=== PATIENT | male | born 1990 | race Caucasian/White ===

== ENCOUNTER 2016-12-07 16:53 | Emergency (ER) | payer OTHER ==
[2016-12-07 17:29] VITALS: BP 123/63
--- NOTE | 2016-12-07 18:56 | UC ---
Knee Pain HPI - HPI Summary HPI Summary: The patient comes in today for: 1. Right knee pain: Onset: 2 weeks. Palliative/provocative: Ibuprofen makes it better. Quality: Burning at times. Region: Above the right patella and the medical aspect of the right knee. Severity: 2/10 Time: Comes and goes. Associated symptoms: Event: He slipped on ice while jumping to get over the curb and he think that he struck the inside of the right knee. Previous problems with your knees: None. Previous treatment: ibuprofen--400 mg at most only once. * - History of Current Complaint Chief Complaint: UCLowerExtremity Stated Complaint: KNEE INJURY Time Seen by Provider: 12/07/16 18:50 Hx Obtained From: Patient - Allergies/Home Medications Allergies/Adverse Reactions: Allergies Allergy/AdvReac Type Severity Reaction Status Date / Time No Known Allergies Allergy Verified 12/07/16 17:30 PMH/Surg Hx/FS Hx/Imm Hx Previously Healthy: Yes Endocrine History Of: Denies: Diabetes, Thyroid Disease, Hyperthyroidism, Hypothyroidism, Dyslipidemia Cardiovascular History Of: Denies: Cardiac Disorders, Hypertension, Pacemaker/ICD, Myocardial Infarction , Congestive Heart Failure, Atrial Fibrillation, Deep Vein Thrombosis, Bleeding Disorders Respiratory History Of: Denies: COPD, Asthma, Bronchitis, Pneumonia, Pulmonary Embolism GI/ History Of: Reports: Ulcer - He does not take any medications for this. Dx'ed age 7 Denies: Gastroesophageal Reflux, Gastrointestinal Bleed, Gall Bladder Disease , Kidney Stones, Diverticulitis, Renal Disease, Urosepsis Neurological History Of: Denies: TIA, CVA, Dementia, Seizures, Migraine Psychological History Of: Denies: Anxiety, Depression, Bipolar Disorder, Schizophrenia, Post Traumatic Stress Disorder Cancer History Of: Denies: Lung Cancer, Colorectal Cancer, Breast Cancer, Prostate Cancer, Cervical Cancer Other History Of: Negative For: HIV, Hepatitis B, Hepatitis C, Anticoagulant Therapy - Surgical History Surgical History: Yes Surgery Procedure, Year, and Place: appendectomy - Family History Known Family History: Positive: Hypertension Negative: Cardiac Disease, Diabetes - Social History Occupation: Employed Full-time Alcohol Use: None Substance Use Type: None Smoking Status (MU): Never Smoked Tobacco - Immunization History Most Recent Influenza Vaccination: not this season Review of Systems Constitutional: Negative Skin: Negative Eyes: Negative ENT: Negative Respiratory: Negative Cardiovascular: Negative Gastrointestinal: Negative Genitourinary: Negative Musculoskeletal: Arthralgia All Other Systems Reviewed And Are Negative: Yes Physical Exam Triage Information Reviewed: Yes Appearance: Well-Appearing, No Pain Distress, Well-Nourished Vital Signs: Initial Vital Signs Temp 98.2 F 12/07/16 17:25 Pulse 63 12/07/16 17:25 Resp 20 12/07/16 17:25 BP 123/63 12/07/16 17:25 Pulse Ox 96 12/07/16 17:25 Vital Signs Reviewed: Yes Eyes: Positive: Conjunctiva Clear. Negative: Discharge ENT: Positive: Hearing grossly normal. Negative: Pharyngeal erythema, Nasal congestion, Nasal drainage, TM bulging, TM dull, TM red, Tonsillar swelling, Tonsillar exudate Dental: Negative: Gross Decay/Caries @, Dental Fracture @ Neck: Positive: Supple, Nontender, No Lymphadenopathy. Negative: Nuchal Rigidity Respiratory: Positive: Lungs clear, No respiratory distress, No accessory muscle use. Negative: Crackles, Wheezing Cardiovascular: Positive: RRR, No Murmur Abdomen Description: Positive: Nontender, No Organomegaly, Soft. Negative: Distended, Guarding Musculoskeletal: Positive: Strength Intact, ROM Intact, Other: - There is no ecchymosis or edema of the right knee. There is full range of motion without any crepitations. There is no effusion. There is no tenderness of the hamstring tendons and no tenderness to patellar compression. There is no anterior medical or lateral meniscii tenderness to palpation. There is tenderness to palpation of the medial collateral ligament. There is no laxity of the collateral ligaments or cruciate ligaments. Neurological: Positive: Alert, Muscle Tone Normal Psychological: Positive: Age Appropriate Behavior, Consolable Skin: Negative: rashes, breakdown Knee Pain Course/Dx - Course Course Of Treatment: Patient was told of his diagnostic and treatment options. At this time, he declines an x-ray but will take a prescription NSAIDS--he declines one while he is here. - Differential Dx/Diagnosis Provider Diagnoses: Right knee pain, strain of the medial collateral ligament. Discharge - Discharge Plan Condition: Stable Disposition: HOME Patient Education Materials: Knee Pain (ED) Forms: *Work Release Referrals: [facility]YSICIAN REFERRAL [Outside] No Primary Care Phys,NOPCP [Primary Care Provider] - 1 Week (Please see your primary care provider in about three days to see how well you are doing. If you don't have a primary care provider, please contact the physician referral service. If you can't get in timely, please you may come back to see us until you can. If you get worse, please be seen sooner by us or the ER.)
== END 2016-12-07 19:44 | disposition home or self-care (01) ==
LOC: UCEAST 16:53
DX: S83.411A Sprain of medial collateral ligament of right knee, initial encounter (principal); W00.0XXA Fall on same level due to ice and snow, initial encounter; Y93.39 Activity, other involving climbing, rappelling and jumping off; Y92.9 Unspecified place or not applicable
CPT/HCPCS: 99212; G0463

== ENCOUNTER 2017-04-16 20:51 | Emergency (ER) | payer OTHER ==
[2017-04-16] MEDS ORDERED: Ketorolac INJ* 60 MG/2 ML VIAL IM ONE (21:21)
[2017-04-16] MEDS ORDERED: Cyclobenzaprine TAB* 10 MG PO ONE (21:21)
--- NOTE | 2017-04-16 21:28 | ED ---
Back Pain - HPI Summary HPI Summary: 26M presents with back pain for years. He says today the pain got worst. He was going cardio abs yesterday. He denies any injury. He went to the chiropractor which made the pain worst. Pain is greatest on left side of back. He does not have a primary. He denies any fever, IV drug use, loss of bowel or bladder or saddle anaesthesia. He denies any numbness, tingling, weakness, or pain into legs. - History of Current Complaint Chief Complaint: EDBackInjuryPain Stated Complaint: LOWER BACK PAIN Time Seen by Provider: 04/16/17 21:06 Pain Intensity: 4 - Allergies/Home Medications Allergies/Adverse Reactions: Allergies Allergy/AdvReac Type Severity Reaction Status Date / Time No Known Allergies Allergy Verified 04/16/17 20:54 PMH/Surg Hx/FS Hx/Imm Hx Endocrine/Hematology History: Denies: Hx Anticoagulant Therapy, Hx Diabetes, Hx Thyroid Disease Cardiovascular History: Denies: Hx Congestive Heart Failure, Hx Deep Vein Thrombosis, Hx Hypertension , Hx Myocardial Infarction, Hx Pacemaker/ICD Respiratory History: Denies: Hx Asthma, Hx Chronic Obstructive Pulmonary Disease (COPD), Hx Lung Cancer, Hx Pneumonia, Hx Pulmonary Embolism GI History: Reports: Hx Ulcer - He does not take any medications for this. Dx' ed age 7 Denies: Hx Gall Bladder Disease, Hx Gastrointestinal Bleed, Hx Urosepsis History: Denies: Hx Kidney Stones, Hx Renal Disease Neurological History: Denies: Hx Dementia, Hx Migraine, Hx Seizures, Hx Transient Ischemic Attacks (TIA) Psychiatric History: Denies: Hx Anxiety, Hx Depression, Hx Schizophrenia, Hx Bipolar Disorder - Surgical History Surgery Procedure, Year, and Place: appendectomy - Immunization History Date of Tetanus Vaccine: unknown Infectious Disease History: No Infectious Disease History: Denies: Hx Clostridium Difficile, Hx Hepatitis, Hx Human Immunodeficiency Virus (HIV), Hx of Known/Suspected MRSA, Hx Shingles, Hx Tuberculosis, Hx Known/ Suspected VRE, Hx Known/Suspected VRSA, History Other Infectious Disease, Traveled Outside the [place] in Last 30 Days - Family History Known Family History: Positive: Hypertension Negative: Cardiac Disease, Diabetes - Social History Alcohol Use: None Substance Use Type: Reports: None Smoking Status (MU): Never Smoked Tobacco Review of Systems Negative: Fever Negative: Chest Pain Negative: Shortness Of Breath Positive: Myalgia - back pain All Other Systems Reviewed And Are Negative: Yes Physical Exam Triage Information Reviewed: Yes Vital Signs On Initial Exam: Initial Vitals Temp Pulse Resp BP Pulse Ox 97.5 F 73 18 122/73 98 04/16/17 20:54 04/16/17 20:54 04/16/17 20:54 04/16/17 20:54 04/16/17 20:54 Vital Signs Reviewed: Yes Appearance: Positive: Well-Appearing Skin: Positive: Warm, Dry Head/Face: Positive: Normal Head/Face Inspection Eyes: Positive: Normal, Conjunctiva Clear Respiratory/Lung Sounds: Positive: Clear to Auscultation, Breath Sounds Present Cardiovascular: Positive: Normal, RRR Musculoskeletal: Positive: Strength/ROM Intact - back, Other - neg SLR, no midline tenderness, tenderness to paraspinal muscle greatest on left side Diagnostics - Vital Signs Vital Signs Temp Pulse Resp BP Pulse Ox 04/16/17 20:54 97.5 F 73 18 122/73 98 - Laboratory Lab Statement: Any lab studies that have been ordered have been reviewed, and results considered in the medical decision making process. Back Pain Course/Dx - Course Course Of Treatment: 26M presents with back pain for years. He says today the pain got worst. He was going cardio abs yesterday. He denies any injury. He went to the chiropractor which made the pain worst. Pain is greatest on left side of back and has no midline tenderness. due to no injury will not image. neg SLR. will treat with flexeril and told to get primary. patient understands and agrees with plan - Diagnoses Differential Diagnosis/HQI/PQRI: Positive: Herniated Disc, Strain, Sprain Provider Diagnoses: Back pain Discharge - Discharge Plan Condition: Good Disposition: HOME Prescriptions: Cyclobenzaprine TAB* [Flexeril 10 MG TAB*] 10 mg PO TID PRN #9 tab PRN Reason: Pain Patient Education Materials: Back Pain (ED) Forms: *Work Release Referrals: [facility] [place] [facility]FERR[facility] [Outside] Additional Instructions: Take muscle relaxers three times a day for 3 days Use ibuprofen or Tylenol for pain every 6 hours ice/heat area, move as much as possible Establish care with primary care physician Return to ED if develop any new or worsening symptoms
[2017-04-16 21:54] VITALS: BP 140/66
== END 2017-04-16 21:53 | disposition home or self-care (01) ==
LOC: ED 20:51
DX: M54.5 Low back pain (principal)
CPT/HCPCS: 96372; 99282; A9270-GY; J1885

== ENCOUNTER 2017-05-10 11:44 | Emergency (ER) | payer SELFPAY ==
--- NOTE | 2017-05-10 11:47 | UC ---
Back Pain HPI - HPI Summary HPI Summary: 26 year old male presents with complains of back pain secondary to lifting heavy boxes at work. - History of Current Complaint Chief Complaint: UCBackPain Stated Complaint: LOWER BACK INJURY Time Seen by Provider: 05/10/17 11:47 - Allergies/Home Medications Allergies/Adverse Reactions: Allergies Allergy/AdvReac Type Severity Reaction Status Date / Time No Known Allergies Allergy Verified 04/16/17 20:54 Home Medications: Home Medications Meloxicam 7.5 mg PO 05/10/17 [History] PMH/Surg Hx/FS Hx/Imm Hx Previously Healthy: Yes Other History Of: Negative For: HIV, Hepatitis B, Hepatitis C, Anticoagulant Therapy - Surgical History Surgical History: Yes Surgery Procedure, Year, and Place: appendectomy - Family History Known Family History: Positive: Hypertension Negative: Cardiac Disease, Diabetes - Social History Alcohol Use: None Substance Use Type: None Smoking Status (MU): Never Smoked Tobacco - Immunization History Most Recent Influenza Vaccination: not this season Review of Systems Constitutional: Negative Skin: Negative Eyes: Negative ENT: Negative Respiratory: Negative Cardiovascular: Negative Gastrointestinal: Negative Genitourinary: Negative Motor: Negative Neurovascular: Negative Musculoskeletal: Other: - lower backs spasm Neurological: Negative Psychological: Negative All Other Systems Reviewed And Are Negative: Yes Physical Exam Triage Information Reviewed: Yes Eye Exam: Normal ENT Exam: Normal Dental Exam: Normal Neck exam: Normal Neck: Positive: 1 Respiratory Exam: Normal Cardiovascular Exam: Normal Abdominal Exam: Normal Musculoskeletal: Positive: Other: - lower back spasm lower lumbar paraspinal spasm Neurological Exam: Normal Psychological Exam: Normal Skin Exam: Normal Back Pain Course/Dx - Differential Dx/Diagnosis Provider Diagnoses: lower back spasm. para spinal lumbar pain Discharge - Discharge Plan Condition: Stable Disposition: HOME Prescriptions: Meloxicam [Mobic] 7.5 mg PO BID PC #14 tab Methocarbamol TAB* [Robaxin 500 MG TAB*] 500 mg PO TID PRN #30 tab PRN Reason: Spasms - Back Patient Education Materials: Muscle Spasm (ED) Forms: *Work Release Referrals: Aldo Bynum MD [Primary Care Provider] - If Needed
[2017-05-10 12:11] VITALS: BP 130/76
== END 2017-05-10 12:05 | disposition home or self-care (01) ==
LOC: UCEAST 11:44
DX: R25.2 Cramp and spasm (principal); M62.830 Muscle spasm of back; M54.5 Low back pain
CPT/HCPCS: 99212; G0463

== ENCOUNTER 2017-07-15 16:10 | Emergency (ER) | payer OTHER ==
[2017-07-15 16:38] VITALS: BP 114/71
--- NOTE | 2017-07-15 16:57 | UC ---
Back Pain HPI - HPI Summary HPI Summary: 26 YEAR OLD MALE PRESENTS WITH COMPLAINS OF LOWER BACK PAIN - History of Current Complaint Chief Complaint: UCBackPain Stated Complaint: BACK PAIN Time Seen by Provider: 07/15/17 16:53 Hx Obtained From: Patient Onset/Duration: Sudden Onset Timing: Constant Severity Initially: Moderate Severity Currently: Moderate Pain Scale Used: 0-10 Numeric - 6 - Allergies/Home Medications Allergies/Adverse Reactions: Allergies Allergy/AdvReac Type Severity Reaction Status Date / Time No Known Allergies Allergy Verified 04/16/17 20:54 PMH/Surg Hx/FS Hx/Imm Hx Other History Of: Negative For: HIV, Hepatitis B, Hepatitis C, Anticoagulant Therapy - Surgical History Surgical History: Yes Surgery Procedure, Year, and Place: appendectomy - Family History Known Family History: Positive: Hypertension Negative: Cardiac Disease, Diabetes - Social History Alcohol Use: None Substance Use Type: None Smoking Status (MU): Never Smoked Tobacco - Immunization History Most Recent Influenza Vaccination: fall 2016 Review of Systems Constitutional: Negative Skin: Negative Eyes: Negative ENT: Negative Respiratory: Negative Cardiovascular: Negative Gastrointestinal: Negative Genitourinary: Negative Motor: Negative Neurovascular: Negative Musculoskeletal: Other: - LOWER BACK PAIN Neurological: Negative Psychological: Negative All Other Systems Reviewed And Are Negative: Yes Physical Exam Triage Information Reviewed: Yes Appearance: Well-Appearing Vital Signs: Initial Vital Signs Temp 37.0 C 07/15/17 16:32 Pulse 75 07/15/17 16:32 Resp 16 07/15/17 16:32 BP 114/71 07/15/17 16:32 Pulse Ox 99 07/15/17 16:32 Vital Signs Reviewed: Yes Eye Exam: Normal ENT Exam: Normal Dental Exam: Normal Neck exam: Normal Neck: Positive: 1 Respiratory Exam: Normal Cardiovascular Exam: Normal Abdominal Exam: Normal Musculoskeletal: Positive: Other: - LOW BACK PAIN Neurological Exam: Normal Psychological Exam: Normal Skin Exam: Normal Back Pain Course/Dx - Differential Dx/Diagnosis Provider Diagnoses: LOWER BACK PAIN Discharge - Discharge Plan Condition: Stable Disposition: HOME Prescriptions: Cyclobenzaprine HCl [Flexeril 5 mg (NF)] 5 mg PO TID #30 tab Ibuprofen TAB* [Motrin TAB* 800 MG] 800 mg PO Q8H #30 tab Patient Education Materials: Acute Low Back Pain (ED) Forms: *Work Release Referrals: Aldo Bynum MD [Primary Care Provider] -
== END 2017-07-15 17:12 | disposition home or self-care (01) ==
LOC: UCEAST 16:10
DX: M54.5 Low back pain (principal)
CPT/HCPCS: 99212; G0463

== ENCOUNTER → 2017-07-16 08:33 | Emergency (ER) | payer OTHER ==
[~2017-07-16 08:33] MED LIST: Ketorolac INJ* 60 MG/2 ML VIAL IM ONE
[2017-07-16 08:47] VITALS: BP 126/81
--- NOTE | 2017-07-16 09:19 | ED ---
Back Pain - HPI Summary HPI Summary: patient presents to the ED with CC of low back pain which acute on chronic. He was given flexeril at the and has been using that and Ibuprofen with little relief. He called the ambulance today d/t worsening pain. He has seen a chiropractor which he feels has worsened his symptoms. Flexeril without relief. Denies fevers, sweats, or chills. Denies urinary symptoms. Denies B/ B dysfunction. - History of Current Complaint Chief Complaint: EDBackInjuryPain Stated Complaint: BACK PAIN Time Seen by Provider: 07/16/17 08:50 Hx Obtained From: Patient Onset/Duration: Gradual Onset Onset/Duration: Atraumatic, Still Present Timing: Constant Back Pain Location: Is Discrete @ - right sided lower back without flank involvement (CVA negative) Pain Intensity: 4 Pain Scale Used: 0-10 Numeric Character: Aching Aggravating Symptom(s): Movement Alleviating Symptom(s): Rest, Position Associated Signs And Symptoms: Negative: Redness, Weakness, Numbness, Bladder Incontinence, Bowel Incontinence, Weight Loss, Pain with Weight Bearing - Risk Factors AAA Risk Factors: Negative TAD Risk Factors: Negative Cauda Equina Risk Factors: Negative Epidural Abscess Risk Factors: Negative - Allergies/Home Medications Allergies/Adverse Reactions: Allergies Allergy/AdvReac Type Severity Reaction Status Date / Time No Known Allergies Allergy Verified 04/16/17 20:54 PMH/Surg Hx/FS Hx/Imm Hx Previously Healthy: Yes Endocrine/Hematology History: Denies: Hx Anticoagulant Therapy, Hx Diabetes, Hx Thyroid Disease Cardiovascular History: Denies: Hx Congestive Heart Failure, Hx Deep Vein Thrombosis, Hx Hypertension , Hx Myocardial Infarction, Hx Pacemaker/ICD Respiratory History: Denies: Hx Asthma, Hx Chronic Obstructive Pulmonary Disease (COPD), Hx Lung Cancer, Hx Pneumonia, Hx Pulmonary Embolism GI History: Reports: Hx Ulcer - He does not take any medications for this. Dx' ed age 7 Denies: Hx Gall Bladder Disease, Hx Gastrointestinal Bleed, Hx Urosepsis History: Denies: Hx Kidney Stones, Hx Renal Disease Neurological History: Denies: Hx Dementia, Hx Migraine, Hx Seizures, Hx Transient Ischemic Attacks (TIA) Psychiatric History: Denies: Hx Anxiety, Hx Depression, Hx Schizophrenia, Hx Bipolar Disorder - Surgical History Surgery Procedure, Year, and Place: appendectomy - Immunization History Date of Tetanus Vaccine: unknown Hx Pertussis Vaccination: No Immunizations Up to Date: Unable to Obtain/Confirm Infectious Disease History: No Infectious Disease History: Denies: Hx Clostridium Difficile, Hx Hepatitis, Hx Human Immunodeficiency Virus (HIV), Hx of Known/Suspected MRSA, Hx Shingles, Hx Tuberculosis, Hx Known/ Suspected VRE, Hx Known/Suspected VRSA, History Other Infectious Disease, Traveled Outside the [place] in Last 30 Days - Family History Known Family History: Positive: Hypertension Negative: Cardiac Disease, Diabetes - Social History Occupation: Employed Full-time Lives: With Family Alcohol Use: None Hx Substance Use: No Substance Use Type: Reports: None Hx Tobacco Use: No Smoking Status (MU): Never Smoked Tobacco Review of Systems Constitutional: Negative Negative: Fever, Chills, Fatigue Cardiovascular: Negative Respiratory: Negative Gastrointestinal: Negative Positive: no symptoms reported, see HPI Positive: Arthralgia Neurological: Negative Psychological: Normal All Other Systems Reviewed And Are Negative: Yes Physical Exam Triage Information Reviewed: Yes Vital Signs On Initial Exam: Initial Vitals Temp Pulse Resp BP Pulse Ox 97.9 F 80 18 126/81 97 07/16/17 08:33 07/16/17 08:33 07/16/17 08:33 07/16/17 08:33 07/16/17 08:33 Vital Signs Reviewed: Yes Appearance: Positive: Well-Appearing, Well-Nourished Skin: Positive: Warm, Skin Color Reflects Adequate Perfusion Head/Face: Positive: Normal Head/Face Inspection Eyes: Positive: EOMI, ERVIN, Conjunctiva Clear Neck: Positive: Supple, No Lymphadenopathy Respiratory/Lung Sounds: Positive: Clear to Auscultation, Breath Sounds Present Cardiovascular: Positive: Pulses are Symmetrical in both Upper and Lower Extremities Musculoskeletal: Positive: Normal, Strength/ROM Intact, Pain @ - right low back Neurological: Positive: Speech Normal Psychiatric: Positive: Normal AVPU Assessment: Alert - [place] Coma Scale Coma Scale Total: 15 Diagnostics - Vital Signs Vital Signs Temp Pulse Resp BP Pulse Ox 07/16/17 08:33 97.9 F 80 18 126/81 97 - Laboratory Lab Statement: Any lab studies that have been ordered have been reviewed, and results considered in the medical decision making process. Back Pain Course/Dx - Course Course Of Treatment: right sided lower back without flank involvement (CVA negative). given flexeril at without relief. He has been taking NSAIDS without relief. Explained to patient this will take time to improve and he is given toradol 60mg IM and given prescription. Denies B/B function. He is OK with discharge. - Diagnoses Differential Diagnosis/HQI/PQRI: Positive: Strain, Sprain Provider Diagnoses: Acute back pain Discharge - Discharge Plan Condition: Stable Disposition: HOME Prescriptions: Ketorolac TAB * [Toradol TAB *] 10 mg PO Q6H #16 tab MDD 4 Patient Education Materials: Acute Low Back Pain (ED), Lower Back Exercises (ED ) Referrals: Aldo Bynum MD [Primary Care Provider] - Additional Instructions: Try the toradol - up to four times daily Dx. Muscle Strain Ibuprofen 600mg three times daily with meals for discomfort. Return to ED if symptoms worsen or fail to improve, notice worsening swelling, warmth or redness around the joint, develop fever, or pain is uncontrolled with OTC medications. Moist heat to the area for comfort. Warm showers or baths may improve symptoms. It is important to remain mobile as tolerated to prevent stiffening of the joints and delay healing. Follow up with your PCP. If symptoms remain for > 6 weeks, please seek special medical attention from an orthopedic physician.
== END | disposition home or self-care (01) ==
LOC: ED 08:33
DX: M54.5 Low back pain (principal)
CPT/HCPCS: 96372; 99282; J1885

== ENCOUNTER 2017-11-28 10:03 | Emergency (ER) | payer SELFPAY ==
[2017-11-28 10:26] VITALS: BP 105/73
[2017-11-28] MEDS ORDERED: Ketorolac INJ* 60 MG/2 ML VIAL IM ONE (10:41)
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
== END 2017-11-28 10:59 | disposition home or self-care (01) ==
LOC: UCEAST 10:03
DX: S00.83XA Contusion of other part of head, initial encounter (principal); W22.8XXA Striking against or struck by other objects, initial encounter; Y92.9 Unspecified place or not applicable
CPT/HCPCS: 96372; 99212; G0463; J1885

== ENCOUNTER 2018-03-20 20:37 | Emergency (ER) | payer OTHER ==
[2018-03-20] MEDS ORDERED: Ibuprofen ADULT LIQ* 600 MG/30 ML UDC PO ONE (22:32)
[2018-03-20] MEDS ORDERED: Dexamethasone TAB* 4 MG PO ONE (22:32)
--- NOTE | 2018-03-20 22:32 | ED ---
Back Pain - HPI Summary HPI Summary: 27-year-old male presents with back pain for past couple days. 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 He states location as the same area. Denies any loss of bowel or bladder. He denies any saddle anesthesia. Denies any numbness or tingling into his legs. He does get some pain into his right leg up to his thigh. He has taken muscle relaxer and some other medication without relief. He takes ibuprofen. He states that liquid ibuprofen tends to work the best. He is still able to ambulate. He denies any weakness. He denies any urinary symptoms. Denies any fevers. - History of Current Complaint Chief Complaint: EDBackInjuryPain Stated Complaint: BACK PAIN Time Seen by Provider: 03/20/18 21:20 Pain Intensity: 4 - Allergies/Home Medications Allergies/Adverse Reactions: Allergies Allergy/AdvReac Type Severity Reaction Status Date / Time No Known Allergies Allergy Verified 11/28/17 10:26 PMH/Surg Hx/FS Hx/Imm Hx Endocrine/Hematology History: Denies: Hx Anticoagulant Therapy, Hx Diabetes, Hx Thyroid Disease Cardiovascular History: Denies: Hx Congestive Heart Failure, Hx Deep Vein Thrombosis, Hx Hypertension , Hx Myocardial Infarction, Hx Pacemaker/ICD Respiratory History: Denies: Hx Asthma, Hx Chronic Obstructive Pulmonary Disease (COPD), Hx Lung Cancer, Hx Pneumonia, Hx Pulmonary Embolism GI History: Reports: Hx Ulcer - peptic Denies: Hx Gall Bladder Disease, Hx Gastrointestinal Bleed, Hx Urosepsis History: Denies: Hx Kidney Stones, Hx Renal Disease Neurological History: Denies: Hx Dementia, Hx Migraine, Hx Seizures, Hx Transient Ischemic Attacks (TIA) Psychiatric History: Denies: Hx Anxiety, Hx Depression, Hx Schizophrenia, Hx Bipolar Disorder - Surgical History Surgery Procedure, Year, and Place: appendectomy - Immunization History Date of Tetanus Vaccine: unknown Infectious Disease History: No Infectious Disease History: Denies: Hx Clostridium Difficile, Hx Hepatitis, Hx Human Immunodeficiency Virus (HIV), Hx of Known/Suspected MRSA, Hx Shingles, Hx Tuberculosis, Hx Known/ Suspected VRE, Hx Known/Suspected VRSA, History Other Infectious Disease, Traveled Outside the [place] in Last 30 Days - Family History Known Family History: Positive: Hypertension Negative: Cardiac Disease, Diabetes - Social History Alcohol Use: None Hx Substance Use: No Substance Use Type: Reports: None Hx Tobacco Use: No Smoking Status (MU): Never Smoked Tobacco Review of Systems Negative: Fever Negative: Chest Pain Negative: Shortness Of Breath Positive: Myalgia - back pain All Other Systems Reviewed And Are Negative: Yes Physical Exam Triage Information Reviewed: Yes Vital Signs On Initial Exam: Initial Vitals Temp Pulse Resp BP Pulse Ox 98.2 F 63 16 119/82 97 03/20/18 20:53 03/20/18 20:53 03/20/18 20:53 03/20/18 20:53 03/20/18 20:53 Vital Signs Reviewed: Yes Appearance: Positive: Well-Appearing Skin: Positive: Warm, Dry Head/Face: Positive: Normal Head/Face Inspection Eyes: Positive: Normal, Conjunctiva Clear Respiratory/Lung Sounds: Positive: Clear to Auscultation, Breath Sounds Present Cardiovascular: Positive: Normal, RRR Musculoskeletal: Positive: Strength/ROM Intact - back, Other - Tenderness right side of back. No midline tenderness, negative straight leg raise, good pulses, sensation grossly intact Neurological: Positive: Normal, Reflexes Intact - Patella Psychiatric: Positive: Normal Diagnostics - Vital Signs Vital Signs Temp Pulse Resp BP Pulse Ox 03/20/18 20:53 98.2 F 63 16 119/82 97 - Laboratory Lab Statement: Any lab studies that have been ordered have been reviewed, and results considered in the medical decision making process. Back Pain Course/Dx - Course Course Of Treatment: 27-year-old male presents with back pain for past couple days. 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 He states location as the same area. Denies any loss of bowel or bladder. He denies any saddle anesthesia. Denies any numbness or tingling into his legs. He does get some pain into his right leg up to his thigh. He has taken muscle relaxer and some other medication without relief. He takes ibuprofen. He states that liquid ibuprofen tends to work the best. He is still able to ambulate. He denies any weakness. He denies any urinary symptoms. Denies any fevers. On exam has tenderness to the right side of back. No midline tenderness. Neurovascular intact. Will treat with liquid ibuprofen as patient requested. Will also have steroid. Patient understands agrees with plan. - Diagnoses Differential Diagnosis/HQI/PQRI: Positive: Herniated Disc, Strain, Sprain Provider Diagnoses: Back pain Discharge - Sign-Out/Discharge Documenting (check all that apply): Discharge/Admit/Transfer - Discharge Plan Condition: Good Disposition: HOME Prescriptions: Ibuprofen ADULT LIQ* [Motrin LIQ ADULT*] 600 mg PO QID #1 bottle methylPREDNISolone TAB* [Medrol TAB*] 4 - 8 mg PO .SEE MARVA #1 marva Patient Education Materials: Back Pain (ED) Referrals: Aldo Bynum MD [Primary Care Provider] - Additional Instructions: Follow directions on package for Medrol pack take 30ml every 6 hours of ibuprofen as needed for pain ice/heat area, move as much as possible Follow up with primary within 5 days Return to ED if develop any new or worsening symptoms - Billing Disposition and Condition Condition: GOOD Disposition: Home
[2018-03-20 22:56] VITALS: BP 112/76
== END 2018-03-20 22:54 | disposition home or self-care (01) ==
LOC: ED 20:37
DX: M54.9 Dorsalgia, unspecified (principal)
CPT/HCPCS: 99282; A9270-GY; J8540

== ENCOUNTER 2018-07-05 19:07 | Emergency (ER) | payer OTHER ==
--- OUTSIDE RECORDS SUMMARY | 2018-07-05 19:40 | XMS REPORT ---
:1990 External Reference #:[id number] Author Organization [facility] Address [address] [place] [address] [place] [address] Phone [phone] Care Team Providers Name Role Phone Aldo Bynum MD Primary Care Physician Unavailable Payers Type Date Identification Numbers Payment Provider Subscriber Commercial Policy Number: [id number] [employer] Lloyd Fernandez PayID: [id number] [address] [address] [place] [address] Workers Compensation Effective: 2017 PayID: [id number] No Fault Lloyd Fernandez Onset: 2017 Workers Compensation Onset: 2017 Policy Number: [place] Lloyd Fernandez [id number] PayID: [id number] Problems Date Description Provider Status Onset: 04/24/2017 Low back strain Aldo Bynum M.D.,FACP Active Onset: 04/24/2017 Body mass index 25-29 - Aldo Bynum M.D.,FACP Active overweight Family History Date Family Member(s) Problem(s) Comments Father Unknown Mother Alive And Well Siblings 2 Onset: (age 36 Years) First Brother Stroke Social History Type Date Description Comments Marital Status Lives With Family Occupation 04/24/2017 [employer] Cigarette Use Never Smoked Cigarettes ETOH Use 04/24/2017 Denies alcohol use Smoking Patient has never smoked Recreational Drug Use Denies Drug Use Daily Caffeine Consumes on average 2 cups of hot tea per day Exercise Type/Frequency Exercises sporadically Currently Active Patient is currently not sexually active General Hx Text 3 kids Allergies, Adverse Reactions, Alerts Date Description Reaction Status Severity Comments 04/24/2017 NKDA active Medications Medication Date Status Form Strength Qnty SIG Indications Ordering Provider Amoxicillin/Clavu 06/29/ Active Tablets 875-125mg 14tabs 1 by N49.2 Forest lanate Potassium 2018 mouth Pachikara twice a , M.D. day Neosporin 06/29/ Active Ointment 3.5-400-50 14.200 apply N49.2 Forest Original 2018 00 gm twice Pachikara daily to , M.D. affected area Cyclobenzaprine 05/20/ Active Tablets 10mg 60tabs take 1 Aldo HCL 2017 tablet Kp Bynum, three M.D.,FACP times a day as needed Meloxicam 04/24/ Active Tablets 7.5mg 60tabs 1 by Aldo [place] mouth Kp Bynum, twice a M.D.,FACP day as needed Tylenol 00/00/ Active Capsules 325mg 2 tablets Unknown 0000 every 4 hours as needed for pain Metaxalone 04/24/ Hx Tablets 800mg 30tabs /2 -1 by Aldo [place] - mouth Kp Bynum, 05/20/ three M.D.,FACP 2017 times a day as needed Ibuprofen 00/00/ Hx Capsules 200mg as needed Unknown 0000 - 2016 Cyclobenzaprine 00/ Hx Tablets 10mg tid prn Unknown HCL 0000 - 2016 Immunizations CPT Code Status Date Vaccine Reaction Lot # [id number] Given 10/26/2017 Tdap - no immediate reaction [id number] Tetanus/Diptheria/Acellular noted .. Pertussis [id number] Given 10/26/2017 Influenza Virus Vaccine, no immediate reaction [id number] Quadrivalent, Split, noted .; Preservative Free Vital Signs Date Vital Result Comment 06/29/2018 Height 70 inches 5'10" Weight 198.00 lb with shoes Heart Rate 84 /min BP Systolic 94 mmHg BP Diastolic 70 mmHg Body Temperature 97.1 F O2 % BldC Oximetry 96 % BMI (Body Mass Index) 28.4 kg/m2 12/28/2017 Weight 200.00 lb Heart Rate 77 /min BP Systolic Sitting 122 mmHg BP Diastolic Sitting 68 mmHg Body Temperature 96.8 F O2 % BldC Oximetry 96 % 10/26/2017 Height 69.25 inches 5'9.25" Weight 199.00 lb Heart Rate 73 /min BP Systolic Sitting 118 mmHg BP Diastolic Sitting 80 mmHg Body Temperature 95.4 F O2 % BldC Oximetry 97 % BMI (Body Mass Index) 29.2 kg/m2 09/10/2017 Weight 225.00 lb Heart Rate 70 /min BP Systolic Sitting 120 mmHg BP Diastolic Sitting 82 mmHg Body Temperature 96.2 F O2 % BldC Oximetry 97 % 05/20/2017 Weight 195.50 lb Heart Rate 68 /min BP Systolic Sitting 122 mmHg BP Diastolic Sitting 70 mmHg Body Temperature 96.4 F O2 % BldC Oximetry 97 % 04/24/2017 Height 69.25 inches 5'9.25" Weight 202.50 lb Heart Rate 81 /min BP Systolic Sitting 120 mmHg BP Diastolic Sitting 72 mmHg Body Temperature 96.8 F O2 % BldC Oximetry 97 % BMI (Body Mass Index) 29.7 kg/m2 Results Test Date Test Result H/L Range Note Lipid Profile (Trig/Chol/HDL) 04/30/2017 Triglycerides 64 mg/dL 1 Cholesterol 129 mg/dL 2 HDL Cholesterol 26.2 mg/dL 3 LDL Cholesterol 90 mg/dL 4 Basic Metabolic Panel 04/30/2017 Sodium 139 mmol/L 133-145 Potassium 3.9 mmol/L 3.5-5.0 Chloride 105 mmol/L 101-111 Co2 Carbon Dioxide 26 mmol/L 22-32 Anion Gap 8 mmol/L 2-11 Glucose 79 mg/dL 70-100 Blood Urea Nitrogen 17 mg/dL 6-24 Creatinine 0.86 mg/dL 0.67-1.17 BUN/Creatinine Ratio 19.8 8-20 Calcium 9.4 mg/dL 8.6-10.3 Egfr Non- 105.9 >60 Egfr 136.2 >60 5 1 Desirable <150 Borderline high 150-199 High 200-499 Very High >500 2 Desirable <200 Borderline high 200-239 High >239 3 Low <40 Desirable: 40-60 High: >60 4 Desirable: <100 mg/dL Near Optimal: 100-129 mg/dL Borderline High: 130-159 mg/dL High: 160-189 mg/dL Very High: >189 mg/dL 5 Because ethnic data is not always readily available, this report includes an eGFR for both -Americans and non- Americans. The National Kidney Disease Education Program (NKDEP) does not endorse the use of the MDRD equation for patients that are not between the ages of 18 and 70, are , have extremes of body size, muscle mass, or nutritional status, or are non- or non-. According to the National Kidney Foundation, irrespective of diagnosis, the stage of the disease is based on the level of kidney function: Stage Description GFR(mL/min/1.73 m(2)) 1 Kidney damage with normal or decreased GFR 90 2 Kidney damage with mild decrease in GFR 60-89 3 Moderate decrease in GFR 30-59 4 Severe decrease in GFR 15-29 5 Kidney failure <15 (or dialysis) Procedures Description No Information Encounters Type Date Location Provider CPT E/M Dx Office Visit 12/28/2017 [facility] Internal Aldo Bynum, 12142 S06.0x0D 3:[address], M.D.,FACP Office Visit 10/26/2017 [facility] Aldo Bynum, 41772 Z00.00 10:[address]a [address], M.D.,FACP Z68.29 Z23 Office Visit 09/10/2017 9:40a [facility] Medicine Aldo Bynum, 04945 M54.5 - Tbsanto Kirk M.D.,FACP M54.5 Office Visit 05/20/2017 9:00a [facility] Medicine Aldo Bynum, 12590 M54.5 - [place] Reagan Hercules,FACP M54.5 Z68.29 Office Visit 04/24/2017 9:20a [facility] Medicine Aldo Bynum, 75698 M54.5 - [place] Reagan Hercules,FACP Z68.29 Plan of Care 06/29/2018 - Forest Mcbride M.D.N49.2 Inflammatory disorders of scrotumNew Medication:Amoxicillin/Clavulanate Potassium 875-125 mgNeosporin Original 3.5- 400-5000Comments:If not getting better call backM54.5 Low back painComments: Will observe
[2018-07-05] MEDS ORDERED: cefTRIAXone VIAL(*) 250 MG VIAL IM ONE (22:16)
[2018-07-05] MEDS ORDERED: Azithromycin TAB* 250 MG PO ONE (22:17)
--- NOTE | 2018-07-05 22:19 | ED ---
Complex/Multi-Sys Presentation - HPI Summary HPI Summary: This patient is a 27 year old M presenting to [facility] s/p panic attack that occurred at work causing him to collapse at 1830. Pt states he got all tingly and fell to the floor, there was no major head trauma. 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 The patient rates the pain 0/10 in severity. Patient reports general malaise. Patient denies QUINTANILLA, LOC, and dysuria. Pt states he feel embarrassed but he would like to be tested for an STI. He noticed a clear penile discharge today after urination. He states he was looking up STDs on the internet and this triggered the panic attack. Hx anxiety without meds. - History Of Current Complaint Chief Complaint: EDWeakness Time Seen by Provider: 07/05/18 22:07 Hx Obtained From: Patient Onset/Duration: Still Present Timing: Constant Severity Currently: Mild Severity Initially: Mild Associated Signs And Symptoms: Positive: Other - anxiety, penis d/c, collapse - Allergies/Home Medications Allergies/Adverse Reactions: Allergies Allergy/AdvReac Type Severity Reaction Status Date / Time No Known Allergies Allergy Verified 11/28/17 10:26 PMH/Surg Hx/FS Hx/Imm Hx Endocrine/Hematology History: Denies: Hx Anticoagulant Therapy, Hx Diabetes, Hx Thyroid Disease Cardiovascular History: Denies: Hx Congestive Heart Failure, Hx Deep Vein Thrombosis, Hx Hypertension , Hx Myocardial Infarction, Hx Pacemaker/ICD Respiratory History: Denies: Hx Asthma, Hx Chronic Obstructive Pulmonary Disease (COPD), Hx Lung Cancer, Hx Pneumonia, Hx Pulmonary Embolism GI History: Reports: Hx Ulcer - peptic Denies: Hx Gall Bladder Disease, Hx Gastrointestinal Bleed, Hx Urosepsis History: Denies: Hx Kidney Stones, Hx Renal Disease Neurological History: Denies: Hx Dementia, Hx Migraine, Hx Seizures, Hx Transient Ischemic Attacks (TIA) Psychiatric History: Reports: Hx Anxiety Denies: Hx Depression, Hx Schizophrenia, Hx Bipolar Disorder - Surgical History Surgery Procedure, Year, and Place: appendectomy - Immunization History Date of Tetanus Vaccine: utd Date of Influenza Vaccine: fall 2016 Infectious Disease History: No Infectious Disease History: Denies: Hx Clostridium Difficile, Hx Hepatitis, Hx Human Immunodeficiency Virus (HIV), Hx of Known/Suspected MRSA, Hx Shingles, Hx Tuberculosis, Hx Known/ Suspected VRE, Hx Known/Suspected VRSA, History Other Infectious Disease, Traveled Outside the [place] in Last 30 Days - Family History Known Family History: Positive: Hypertension Negative: Cardiac Disease, Diabetes - Social History Occupation: Employed Full-time Lives: With Family Alcohol Use: None Hx Substance Use: No Substance Use Type: Reports: None Hx Tobacco Use: No Smoking Status (MU): Never Smoked Tobacco Review of Systems Constitutional: Other - general malaise Genitourinary: Other - discharge Negative: dysuria Musculoskeletal: Negative - head injury Positive: Weakness - collapse , Paresthesia. Negative: Headache, Syncope Positive: Anxious All Other Systems Reviewed And Are Negative: Yes Physical Exam - Summary Physical Exam Summary: VITAL SIGNS: Reviewed. GENERAL: Patient is a well-developed and nourished male who is lying comfortable in the stretcher. Patient is not in any acute respiratory distress. HEAD AND FACE: No signs of trauma. No ecchymosis, hematomas or skull depressions. No sinus tenderness. EYES: PERRLA, EOMI x 2, No injected conjunctiva, no nystagmus. EARS: Hearing grossly intact. Ear canals and tympanic membranes are within normal limits. MOUTH: Oropharynx within normal limits. NECK: Supple, trachea is midline, no adenopathy, no JVD, no carotid bruit, no c- spine tenderness, neck with full ROM. CHEST: Symmetric, no tenderness at palpation LUNGS: Clear to auscultation bilaterally. No wheezing or crackles. CVS: Regular rate and rhythm, S1 and S2 present, no murmurs or gallops appreciated. ABDOMEN: Soft, non-tender. No signs of distention. No rebound no guarding, and no masses palpated. Bowel sounds are normal. EXTREMITIES: FROM in all major joints, no edema, no cyanosis or clubbing. NEURO: Alert and oriented x 3. No acute neurological deficits. Speech is normal and follows commands. SKIN: Dry and warm : normal, no d/c, meatus is normal, no tenderness, no erythema Triage Information Reviewed: Yes Vital Signs On Initial Exam: Initial Vitals Temp Pulse Resp BP Pulse Ox 98.1 F 89 22 128/81 98 07/05/18 19:10 07/05/18 19:10 07/05/18 19:10 07/05/18 19:10 09/24/18 19:10 Vital Signs Reviewed: Yes Diagnostics - Vital Signs Vital Signs Temp Pulse Resp BP Pulse Ox 07/05/18 21:10 97.7 F 74 22 127/84 98 07/05/18 19:10 98.1 F 89 22 128/81 98 - Laboratory Lab Statement: Any lab studies that have been ordered have been reviewed, and results considered in the medical decision making process. Complex Multi-Symp Course/Dx Assessment/Plan: This patient is a 27 year old M presenting to [facility] s/p panic attack that occurred at work causing him to collapse at 1830. Pt states he got all tingly and fell to the floor, there was no major head trauma. 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 The patient rates the pain 0/10 in severity. Patient reports general malaise. Patient denies QUINTANILLA, LOC, and dysuria. Pt states he feel embarrassed but he would like to be tested for an STI. He noticed a clear penile discharge today after urination. He states he was looking up STDs on the internet and this triggered the panic attack. Hx anxiety without meds. . The exam is unremarkable. GC/ Chlamydia was sent. Patient will be treated. Pt was given Zithromax and rocephin in the ED. Patient will be discharged and follow up from PCP. The patient is agreeable with this plan. - Diagnoses Provider Diagnoses: Penile discharge Discharge - Sign-Out/Discharge Documenting (check all that apply): Patient Departure - Discharge Plan Condition: Stable Disposition: HOME Patient Education Materials: Anxiety (ED) Referrals: Aldo Bynum MD [Primary Care Provider] - Additional Instructions: RETURN TO THE EMERGENCY DEPARTMENT FOR CHANGING OR WORSENING SYMPTOMS. FOLLOW UP WITH PCP IN 1-2 DAYS. - Attestation Statements Document Initiated by Scribe: Yes Documenting Scribe: Tyree Alicia Provider For Whom Scribkamla is Documenting (Include Credential): Anette Fleming MD Scribe Attestation: Tyree Dwyer scribed for Anette Fleming MD on 07/05/18 at 2221.
[2018-07-05] MEDS ORDERED: Lidocaine 1%* 5 ML VIAL ONE (22:54)
[2018-07-05 23:00] LABS: Urine Color Straw
[2018-07-05 23:01] LABS: Urine Appearance Clear
[2018-07-05 23:02] LABS: Urine Blood Negative (Negative); Urine Ketones Negative (Negative); Urine Protein Negative (Negative); Urine Urobilinogen Negative (Negative)
[2018-07-05 23:17] VITALS: BP 127/87
== END 2018-07-05 23:17 | disposition home or self-care (01) ==
LOC: ED 19:07
DX: R36.9 Urethral discharge, unspecified (principal); R53.1 Weakness; F41.9 Anxiety disorder, unspecified
CPT/HCPCS: 81003; 87491; 87591; 96372; 99282; A9270-GY; J0696